=== PATIENT | female | born 1975 | race Caucasian/White ===

== ENCOUNTER 2020-05-03 11:40 | Emergency (ER) | payer BC, MEDICAID ==
[~2020-05-03] VITALS: Ht 162.6 cm; Wt 73.5 kg
[2020-05-03] MEDS ORDERED: ACETAMINOPHEN 650 mg PER 20 mL UD PO ONE (13:45)
[2020-05-03 14:31] VITALS: BP 107/71
== END 2020-05-03 15:40 | disposition home or self-care (01) ==
LOC: ER 11:40
DX: J06.9 Acute upper respiratory infection, unspecified (principal); Z20.828 Contact with and (suspected) exposure to other viral communicable diseases; Z98.51 Tubal ligation status; Z90.49 Acquired absence of other specified parts of digestive tract; Z90.710 Acquired absence of both cervix and uterus; Z87.891 Personal history of nicotine dependence
CPT/HCPCS: 71045; 99284; U0003

== ENCOUNTER 2021-08-05 07:03 | Emergency (ER) | payer BC ==
[~2021-08-05] VITALS: Ht 162.6 cm; Wt 79.4 kg
[2021-08-05] MEDS ORDERED: DexAMETHasone SOD PHOS 10MG/1ML VIAL INJ IM ONE (08:00)
[2021-08-05] MEDS ORDERED: ACETAMINOPHEN 500 MG TAB PO ONE (08:00)
[2021-08-05] MEDS ORDERED: cefTRIAXone SOD 1,000 MG VL IM ONE (08:00)
[2021-08-05 08:19] VITALS: BP 113/72
== END 2021-08-05 08:30 | disposition home or self-care (01) ==
LOC: ER 07:03
DX: U07.1 COVID-19 (principal); J12.82 Pneumonia due to coronavirus disease 2019; J03.90 Acute tonsillitis, unspecified; F41.9 Anxiety disorder, unspecified; Z90.710 Acquired absence of both cervix and uterus; Z90.49 Acquired absence of other specified parts of digestive tract; Z98.890 Other specified postprocedural states; Z87.891 Personal history of nicotine dependence
CPT/HCPCS: 71045; 96372; 99284; J0696; J1100

== ENCOUNTER 2021-08-06 20:15 | Inpatient (IN) | payer BC ==
[~2021-08-06] VITALS: Ht 162.6 cm; Wt 77.4 kg
[2021-08-06] MEDS ORDERED: ASCORBIC ACID 500 MG TAB PO ONE (20:30)
[2021-08-06] MEDS ORDERED: methylPREDNISolone SOD SUCC 125 MG/2 ML VL IV ONE (20:30)
[2021-08-06] MEDS ORDERED: ZINC SULFATE 220mg CAP or TAB PO ONE (20:30)
[2021-08-06] MEDS ORDERED: CHOLECALCIFEROL (VITD3) 2,000 UNIT CAP/TAB PO ONE (20:30)
[2021-08-06] MEDS ORDERED: ACETAMINOPHEN 325 MG TAB PO ONE (21:00)
[2021-08-06] MEDS ORDERED: REMDESIVIR PER PHARMACY 0 ML IV SCH ×3 (21:00→21:15)
[2021-08-06 21:57] LABS: Basophils # (auto) 0 10 ^3/uL (0-0.2); Eosinophils # (auto) 0 10 ^3/uL (0-0.8); Hematocrit 43.5 % (36.0-46.0); Hemoglobin 14.3 g/dL (12.2-16.2); Lymphocytes # (auto) 0.6 10 ^3/uL (0.4-5.4); Lymphocytes % (auto) 8.9 % (10.0-50.0); Mean Corpuscular Hgb Conc. 32.9 g/dL (32.0-36.0); Mean Corpuscular Volume 85.2 fL (80.0-100.0); Monocytes # (auto) 0.3 10 ^3/uL (0-1.3); Monocytes % (auto) 4.4 % (0.0-12.0); Neutrophils # (auto) 5.6 10 ^3/uL (1.6-8.6); Neutrophils % (auto) 86.7 % (37.0-80.0); Nucleated Red Blood Cells % 0.2 %; Red Cell Distribution Width 13.5 % (11.8-14.3); White Blood Cell 6.5 10^3/uL (4.4-10.8)
[2021-08-06] MEDS ORDERED: SODIUM CHLORIDE 0.9% 1,000 ML IV SCH (22:00)
[2021-08-06] MEDS ORDERED: ACETAMINOPHEN 500 MG TAB PO PRN (22:00)
[2021-08-06 22:16] LABS: Albumin 3.1 g/dL (3.4-5.0); BUN/Creatinine Ratio 20.3; Calcium 8.4 mg/dL (8.5-10.1); Potassium 4.1 mmol/L (3.5-5.1)
[2021-08-06 22:24] LABS: Bilirubin, Total 0.7 mg/dL (0.2-1.0); CRP High Sensitivity 10.8 mg/dL (< 0.3); Total Protein 7.9 g/dL (6.4-8.2)
[2021-08-06] MEDS ORDERED: MORPHINE SULFATE INJECTION 2 MG/ML SYRG IV PRN (22:30)
[2021-08-06] MEDS ORDERED: NITROGLYCERIN 0.4 MG SL TAB SL PRN (22:30)
[2021-08-06] MEDS: FAMOTIDINE (10MG/ML) 2ML VL IV SCH (23:42)
[2021-08-06] MEDS: DOXYCYCLINE 100MG/250ML 250 ML IV SCH (23:50)
[2021-08-07] VITALS (9 sets, daily range): BP systolic 98–142; BP diastolic 63–68
[2021-08-07] MEDS: HYDROcodone-ACET 5/325MG TAB PO PRN ×4 (00:32→18:07)
[2021-08-07] MEDS: ONDANSETRON HCL 4 MG/2 ML VIAL IV PRN ×4 (00:50→18:06)
[2021-08-07 06:39] LABS: Basophils # (auto) 0 10 ^3/uL (0-0.2); Basophils % (auto) 0.1 % (0.0-2.0); Eosinophils # (auto) 0 10 ^3/uL (0-0.8); Hematocrit 39.9 % (36.0-46.0); Hemoglobin 13.3 g/dL (12.2-16.2); Lymphocytes # (auto) 0.6 10 ^3/uL (0.4-5.4); Lymphocytes % (auto) 11.9 % (10.0-50.0); Mean Corpuscular Hemoglobin 28.6 pg (28.0-32.0); Mean Corpuscular Hgb Conc. 33.5 g/dL (32.0-36.0); Mean Corpuscular Volume 85.4 fL (80.0-100.0); Monocytes # (auto) 0.1 10 ^3/uL (0-1.3); Monocytes % (auto) 2.2 % (0.0-12.0); Neutrophils # (auto) 4.1 10 ^3/uL (1.6-8.6); Neutrophils % (auto) 85.8 % (37.0-80.0); Nucleated Red Blood Cells % 0.1 %; Red Blood Cells 4.67 10^6/uL (4.0-5.20); White Blood Cell 4.8 10^3/uL (4.4-10.8)
[2021-08-07 06:44] LABS: Albumin 2.9 g/dL (3.4-5.0); Calcium 8.7 mg/dL (8.5-10.1)
[2021-08-07 06:50] LABS: BUN/Creatinine Ratio 20.3; Bilirubin, Total 0.7 mg/dL (0.2-1.0); Total Protein 7.4 g/dL (6.4-8.2)
[2021-08-07] MEDS ORDERED: IOHEXOL 350 MG/ML 100ML IJ ONE (08:52)
[2021-08-07] MEDS: ALBUTEROL SULF HFA 90MCG INH 200DOSE IN PRN ×2 (09:14→22:42)
[2021-08-07] MEDS: BUDESONIDE (INHALATION) 180 MCG IH IN SCH ×2 (09:15→22:42)
[2021-08-07] MEDS: FAMOTIDINE (10MG/ML) 2ML VL IV SCH ×2 (10:08→21:43)
[2021-08-07] MEDS: ZINC SULFATE 220mg CAP or TAB PO SCH (10:08)
[2021-08-07] MEDS: DexAMETHasone SOD PHOS 10MG/1ML VIAL INJ IV SCH (10:08)
[2021-08-07] MEDS: DOXYCYCLINE 100MG/250ML 250 ML IV SCH ×2 (10:08→21:44)
[2021-08-07] MEDS: CHOLECALCIFEROL (VITD3) 2,000 UNIT CAP/TAB PO SCH (10:09)
[2021-08-07] MEDS: MULTIPLE VITAMIN TAB PO SCH (10:09)
[2021-08-07] MEDS: ENOXAPARIN SOD 40 MG/0.4 ML SYRINGE SC SCH (10:09)
[2021-08-07] MEDS: ASCORBIC ACID 1,000 MG TAB PO SCH (10:09)
[2021-08-07 10:39] LABS: Urine Bacteria FEW /hpf (None Seen); Urine Blood Negative /uL (Negative); Urine Specific Gravity > 1.050 (1.001-1.035); Urine WBC 3 /hpf (0 - 5)
[2021-08-07] MEDS ORDERED: REMDESIVIR 200 MG in NS 210ml LOADING DOSE ADULT IV ONE (13:00)
[2021-08-07] MEDS: DOCUSATE SOD 100 MG CAP PO PRN (18:07)
[2021-08-08] MEDS: ONDANSETRON HCL 4 MG/2 ML VIAL IV PRN ×2 (02:56→21:47)
[2021-08-08] MEDS: HYDROcodone-ACET 5/325MG TAB PO PRN ×2 (02:57→21:47)
[2021-08-08] MEDS: ALBUTEROL SULF HFA 90MCG INH 200DOSE IN PRN ×2 (05:21→22:22)
[2021-08-08] MEDS: BUDESONIDE (INHALATION) 180 MCG IH IN SCH ×2 (05:21→22:22)
[2021-08-08 06:00] VITALS: BP 96/67
[2021-08-08 08:00] VITALS: BP 129/77
[2021-08-08 09:00] VITALS: BP 129/77
[2021-08-08] MEDS: DOXYCYCLINE 100MG/250ML 250 ML IV SCH ×2 (09:54→21:47)
[2021-08-08] MEDS: FAMOTIDINE (10MG/ML) 2ML VL IV SCH ×2 (09:54→21:46)
[2021-08-08] MEDS: DexAMETHasone SOD PHOS 10MG/1ML VIAL INJ IV SCH (09:54)
[2021-08-08] MEDS: ASCORBIC ACID 1,000 MG TAB PO SCH (09:55)
[2021-08-08] MEDS: MULTIPLE VITAMIN TAB PO SCH (09:55)
[2021-08-08] MEDS: ENOXAPARIN SOD 40 MG/0.4 ML SYRINGE SC SCH (09:55)
[2021-08-08] MEDS: CHOLECALCIFEROL (VITD3) 2,000 UNIT CAP/TAB PO SCH (09:55)
[2021-08-08] MEDS: ZINC SULFATE 220mg CAP or TAB PO SCH (09:55)
[2021-08-08 13:00] VITALS: BP 103/70
[2021-08-08] MEDS: REMDESIVIR 100mg 100 MG in SODIUM CHL 0.9% 230 ML IV SCH (15:32)
[2021-08-08] MEDS: ACETAMINOPHEN 325 MG TAB PO PRN (15:48)
[2021-08-08 17:20] VITALS: BP 95/67
[2021-08-08 22:13] VITALS: BP 92/65
[2021-08-09 05:25] VITALS: BP 113/75
[2021-08-09 07:16] LABS: Basophils # (auto) 0 10 ^3/uL (0-0.2); Eosinophils # (auto) 0 10 ^3/uL (0-0.8); Hematocrit 38.4 % (36.0-46.0); Hemoglobin 13.1 g/dL (12.2-16.2); Lymphocytes # (auto) 1.1 10 ^3/uL (0.4-5.4); Lymphocytes % (auto) 18.7 % (10.0-50.0); Mean Corpuscular Hemoglobin 29.2 pg (28.0-32.0); Mean Corpuscular Hgb Conc. 34.1 g/dL (32.0-36.0); Mean Corpuscular Volume 85.8 fL (80.0-100.0); Monocytes # (auto) 0.5 10 ^3/uL (0-1.3); Monocytes % (auto) 8.1 % (0.0-12.0); Neutrophils # (auto) 4.5 10 ^3/uL (1.6-8.6); Neutrophils % (auto) 73.2 % (37.0-80.0); Nucleated Red Blood Cells % 0.1 %; Red Blood Cells 4.47 10^6/uL (4.0-5.20); Red Cell Distribution Width 13.4 % (11.8-14.3); White Blood Cell 6.1 10^3/uL (4.4-10.8)
[2021-08-09 07:25] LABS: Potassium 4.2 mmol/L (3.5-5.1)
[2021-08-09 07:34] LABS: Albumin 2.6 g/dL (3.4-5.0); BUN/Creatinine Ratio 27.6; Bilirubin, Total 0.5 mg/dL (0.2-1.0); Calcium 8.6 mg/dL (8.5-10.1); Magnesium 2.5 mg/dL (1.6-2.6); Total Protein 6.7 g/dL (6.4-8.2)
[2021-08-09 07:45] LABS: CRP High Sensitivity 2.84 mg/dL (< 0.3)
[2021-08-09 08:00] VITALS: BP 110/67
[2021-08-09 09:00] VITALS: BP 110/67
[2021-08-09] MEDS: ALBUTEROL SULF HFA 90MCG INH 200DOSE IN PRN ×2 (09:44→22:13)
[2021-08-09] MEDS: BUDESONIDE (INHALATION) 180 MCG IH IN SCH ×2 (09:44→22:12)
[2021-08-09] MEDS: FAMOTIDINE (10MG/ML) 2ML VL IV SCH ×2 (10:01→22:24)
[2021-08-09] MEDS: DexAMETHasone SOD PHOS 10MG/1ML VIAL INJ IV SCH (10:01)
[2021-08-09] MEDS: ZINC SULFATE 220mg CAP or TAB PO SCH (10:02)
[2021-08-09] MEDS: DOXYCYCLINE 100MG/250ML 250 ML IV SCH ×2 (10:02→22:23)
[2021-08-09] MEDS: CHOLECALCIFEROL (VITD3) 2,000 UNIT CAP/TAB PO SCH (10:03)
[2021-08-09] MEDS: MULTIPLE VITAMIN TAB PO SCH (10:03)
[2021-08-09] MEDS: ASCORBIC ACID 1,000 MG TAB PO SCH (10:03)
[2021-08-09] MEDS: ENOXAPARIN SOD 40 MG/0.4 ML SYRINGE SC SCH (10:04)
[2021-08-09] MEDS: ACETAMINOPHEN 325 MG TAB PO PRN ×2 (10:26→16:36)
[2021-08-09] MEDS ORDERED: guaiFENesin-DM 100/10mg/5ml SYR PO PRN (11:15)
[2021-08-09 12:33] VITALS: BP 106/72
[2021-08-09] MEDS: REMDESIVIR 100mg 100 MG in SODIUM CHL 0.9% 230 ML IV SCH (15:54)
[2021-08-09 17:00] VITALS: BP 97/68
[2021-08-09 22:00] VITALS: BP 101/65
[2021-08-09] MEDS: ONDANSETRON HCL 4 MG/2 ML VIAL IV PRN (22:24)
[2021-08-09] MEDS: HYDROcodone-ACET 5/325MG TAB PO PRN (22:25)
[2021-08-10] VITALS (9 sets, daily range): BP systolic 99–107; BP diastolic 61–76
[2021-08-10] MEDS: ALBUTEROL SULF HFA 90MCG INH 200DOSE IN PRN ×2 (06:12→20:56)
[2021-08-10] MEDS: BUDESONIDE (INHALATION) 180 MCG IH IN SCH ×2 (06:12→20:22)
[2021-08-10 07:04] LABS: Basophils # (auto) 0 10 ^3/uL (0-0.2); Basophils % (auto) 0.1 % (0.0-2.0); Eosinophils # (auto) 0 10 ^3/uL (0-0.8); Hematocrit 38.4 % (36.0-46.0); Lymphocytes # (auto) 1.3 10 ^3/uL (0.4-5.4); Lymphocytes % (auto) 23.2 % (10.0-50.0); Mean Corpuscular Volume 85.4 fL (80.0-100.0); Monocytes # (auto) 0.4 10 ^3/uL (0-1.3); Monocytes % (auto) 8.1 % (0.0-12.0); Neutrophils # (auto) 3.8 10 ^3/uL (1.6-8.6); Neutrophils % (auto) 68.6 % (37.0-80.0); Nucleated Red Blood Cells % 0.1 %; Red Blood Cells 4.49 10^6/uL (4.0-5.20); White Blood Cell 5.5 10^3/uL (4.4-10.8)
[2021-08-10 07:15] LABS: Potassium 4.2 mmol/L (3.5-5.1)
[2021-08-10 07:21] LABS: Albumin 2.7 g/dL (3.4-5.0); BUN/Creatinine Ratio 29.6; Bilirubin, Total 0.5 mg/dL (0.2-1.0); Calcium 8.5 mg/dL (8.5-10.1); Total Protein 6.5 g/dL (6.4-8.2)
[2021-08-10] MEDS: DexAMETHasone SOD PHOS 10MG/1ML VIAL INJ IV SCH (09:32)
[2021-08-10] MEDS: DOXYCYCLINE 100MG/250ML 250 ML IV SCH ×2 (09:32→22:49)
[2021-08-10] MEDS: FAMOTIDINE (10MG/ML) 2ML VL IV SCH ×2 (09:32→22:51)
[2021-08-10] MEDS: ASCORBIC ACID 1,000 MG TAB PO SCH (09:33)
[2021-08-10] MEDS: CHOLECALCIFEROL (VITD3) 2,000 UNIT CAP/TAB PO SCH (09:33)
[2021-08-10] MEDS: ENOXAPARIN SOD 40 MG/0.4 ML SYRINGE SC SCH (09:33)
[2021-08-10] MEDS: MULTIPLE VITAMIN TAB PO SCH (09:33)
[2021-08-10] MEDS: ZINC SULFATE 220mg CAP or TAB PO SCH (09:33)
[2021-08-10] MEDS: ACETAMINOPHEN 325 MG TAB PO PRN ×2 (09:34→15:32)
[2021-08-10] MEDS: REMDESIVIR 100mg 100 MG in SODIUM CHL 0.9% 230 ML IV SCH (15:39)
[2021-08-10] MEDS: HYDROcodone-ACET 5/325MG TAB PO PRN (22:47)
[2021-08-10] MEDS: ONDANSETRON HCL 4 MG/2 ML VIAL IV PRN (22:48)
[2021-08-11] MEDS: ACETAMINOPHEN 325 MG TAB PO PRN ×2 (04:37→10:50)
[2021-08-11 05:00] VITALS: BP 102/67
[2021-08-11 06:42] LABS: Albumin 2.7 g/dL (3.4-5.0); BUN/Creatinine Ratio 27.8; Calcium 9.1 mg/dL (8.5-10.1); Potassium 4.8 mmol/L (3.5-5.1)
[2021-08-11 06:45] LABS: Bilirubin, Total 0.6 mg/dL (0.2-1.0); Total Protein 6.6 g/dL (6.4-8.2)
[2021-08-11 08:00] VITALS: BP 106/77
[2021-08-11 08:15] VITALS: BP 106/77
[2021-08-11] MEDS: FAMOTIDINE (10MG/ML) 2ML VL IV SCH ×2 (09:20→21:26)
[2021-08-11] MEDS: DOXYCYCLINE 100MG/250ML 250 ML IV SCH (09:20)
[2021-08-11] MEDS: DexAMETHasone SOD PHOS 10MG/1ML VIAL INJ IV SCH (09:20)
[2021-08-11] MEDS: ASCORBIC ACID 1,000 MG TAB PO SCH (09:21)
[2021-08-11] MEDS: ZINC SULFATE 220mg CAP or TAB PO SCH (09:21)
[2021-08-11] MEDS: MULTIPLE VITAMIN TAB PO SCH (09:21)
[2021-08-11] MEDS: CHOLECALCIFEROL (VITD3) 2,000 UNIT CAP/TAB PO SCH (09:22)
[2021-08-11] MEDS: ENOXAPARIN SOD 40 MG/0.4 ML SYRINGE SC SCH (09:22)
[2021-08-11] MEDS: DOCUSATE SOD 100 MG CAP PO PRN (09:22)
[2021-08-11] MEDS: ALBUTEROL SULF HFA 90MCG INH 200DOSE IN PRN ×2 (09:33→22:48)
[2021-08-11] MEDS: BUDESONIDE (INHALATION) 180 MCG IH IN SCH ×2 (09:33→22:48)
[2021-08-11 11:59] VITALS: BP 102/69
[2021-08-11] MEDS: REMDESIVIR 100mg 100 MG in SODIUM CHL 0.9% 230 ML IV SCH (15:34)
[2021-08-11] MEDS: HYDROcodone-ACET 5/325MG TAB PO PRN (15:35)
[2021-08-11] MEDS: ONDANSETRON HCL 4 MG/2 ML VIAL IV PRN (15:35)
[2021-08-11 16:25] VITALS: BP 100/68
[2021-08-11] MEDS ORDERED: ACETAMINOPHEN/CODEINE#3 (300/30mg) TAB PO PRN (17:00)
[2021-08-11 22:00] VITALS: BP 98/61
[2021-08-12] MEDS: ONDANSETRON HCL 4 MG/2 ML VIAL IV PRN (03:24)
[2021-08-12 05:27] VITALS: BP 103/77
[2021-08-12] MEDS: BUDESONIDE (INHALATION) 180 MCG IH IN SCH (06:24)
[2021-08-12] MEDS: ALBUTEROL SULF HFA 90MCG INH 200DOSE IN PRN (06:24)
[2021-08-12] MEDS: FAMOTIDINE (10MG/ML) 2ML VL IV SCH (08:48)
[2021-08-12] MEDS: ASCORBIC ACID 1,000 MG TAB PO SCH (08:48)
[2021-08-12] MEDS: ZINC SULFATE 220mg CAP or TAB PO SCH (08:48)
[2021-08-12] MEDS: CHOLECALCIFEROL (VITD3) 2,000 UNIT CAP/TAB PO SCH (08:48)
[2021-08-12] MEDS: MULTIPLE VITAMIN TAB PO SCH (08:48)
[2021-08-12] MEDS: DexAMETHasone SOD PHOS 10MG/1ML VIAL INJ IV SCH (08:48)
[2021-08-12] MEDS: ENOXAPARIN SOD 40 MG/0.4 ML SYRINGE SC SCH (08:49)
[2021-08-12 09:00] VITALS: BP 98/67
[2021-08-12] MEDS: ACETAMINOPHEN 325 MG TAB PO PRN (12:47)
[2021-08-12 13:00] VITALS: BP 100/62
[2021-08-12 14:36] VITALS: BP 96/50
[2021-08-12 16:31] VITALS: BP 100/60
== END 2021-08-12 18:10 | disposition home or self-care (01) | DRG 177 ==
LOC: ER 20:15 → TELE 22:16 → TELE-EAST 23:30
PROVIDERS: ADMIT Nurse Practitioner Family; ATTEND Internal Medicine
PROC: XW043E5 Introduction of Remdesivir Anti-infective into Central Vein, Percutaneous Approach, New Technology Group 5 (ICD-10-PCS; principal; 2021-08-06)
DX: U07.1 COVID-19 (principal); J96.01 Acute respiratory failure with hypoxia; J12.82 Pneumonia due to coronavirus disease 2019; E66.9 Obesity, unspecified; E88.09 Other disorders of plasma-protein metabolism, not elsewhere classified; Z68.29 Body mass index [BMI] 29.0-29.9, adult; Z80.9 Family history of malignant neoplasm, unspecified; Z82.49 Family history of ischemic heart disease and other diseases of the circulatory system; Z83.3 Family history of diabetes mellitus; Z87.891 Personal history of nicotine dependence; Z90.710 Acquired absence of both cervix and uterus; Z90.49 Acquired absence of other specified parts of digestive tract; Z98.51 Tubal ligation status
CPT/HCPCS: 36415; 70450; 71045; 71275; 80053; 81001; 82728; 83036; 83605; 83615; 83735; 85025; 85379; 86141; 87040; 87493; 93005; 93970; 94640; 96361; 96374; 99291; G0378; J1100; J2405; J3490

== ENCOUNTER 2021-08-30 18:17 | Emergency (ER) | payer BC ==
[~2021-08-30] VITALS: Ht 162.6 cm; Wt 77.1 kg
[2021-08-30 19:30] LABS: Basophils # (auto) 0 10 ^3/uL (0-0.2); Basophils % (auto) 0.8 % (0.0-2.0); Eosinophils # (auto) 0.2 10 ^3/uL (0-0.8); Eosinophils % (auto) 2.9 % (0.0-7.0); Hematocrit 42.2 % (36.0-46.0); Hemoglobin 14.1 g/dL (12.2-16.2); Lymphocytes # (auto) 1.7 10 ^3/uL (0.4-5.4); Lymphocytes % (auto) 28.8 % (10.0-50.0); Mean Corpuscular Hemoglobin 28.6 pg (28.0-32.0); Mean Corpuscular Hgb Conc. 33.5 g/dL (32.0-36.0); Mean Corpuscular Volume 85.4 fL (80.0-100.0); Monocytes # (auto) 0.4 10 ^3/uL (0-1.3); Monocytes % (auto) 7.2 % (0.0-12.0); Neutrophils # (auto) 3.6 10 ^3/uL (1.6-8.6); Neutrophils % (auto) 60.3 % (37.0-80.0); Nucleated Red Blood Cells % 0.2 %; Red Blood Cells 4.94 10^6/uL (4.0-5.20); Red Cell Distribution Width 14.2 % (11.8-14.3)
[2021-08-30 19:52] LABS: Albumin 3.9 g/dL (3.4-5.0); Calcium 9.1 mg/dL (8.5-10.1); Potassium 4.1 mmol/L (3.5-5.1)
[2021-08-30 20:02] LABS: BUN/Creatinine Ratio 17.1; Bilirubin, Total 0.8 mg/dL (0.2-1.0); Total Protein 8.1 g/dL (6.4-8.2)
[2021-08-31 03:10] VITALS: BP 94/64
== END 2021-08-31 03:15 | disposition home or self-care (01) ==
LOC: ER 18:18
DX: U07.1 COVID-19 (principal); R06.02 Shortness of breath; Z98.51 Tubal ligation status; Z90.49 Acquired absence of other specified parts of digestive tract; Z90.710 Acquired absence of both cervix and uterus
CPT/HCPCS: 36415; 71045; 80053; 84484; 85025; 93005